=== PATIENT | female | born 1985 | race Caucasian/White ===

== ENCOUNTER 2018-01-12 08:49 | Outpatient (RCR) | payer BC ==
[2017-03-26 14:32] VITALS: BMI 22.1
[2017-10-20 15:20] VITALS: BP 138/96
[2017-10-20 15:33] VITALS: BP 135/96
[2017-11-21 14:30] VITALS: BP 135/96
[2017-12-16 08:45] VITALS: BP 133/98
[~2018-01-12 08:49] MED LIST: ACET-1966 PO; ALB18R INH; ALB6.7R INH; ALBU8.5H12 IH; ALBUDR INH; AZIT-18 PO; AZIT500T44 PO; BUDE0.5A INH; BUDE10.2 IH; CEP500 PO; CET10 PO; CETI-176 PO; CHOL10005 PO; CHOL200022 PO; CIP500 PO; CIPR-326 PO; DEXTROSE 5%(*) 100 ML BAG 100 ML IVPB PRN; DIA5 PO; DIC10 PO; DILT360C24 PO; ESC10 PO; FLUT16SP20 NS; FOL1 PO; GABA-1 PO; GABA-549 PO; HYDR-3140 PO; HYDR-3503 PO; HYDR-389 PO; HYDR2TAB41 PO; HYDR2TAB42 PO; IPRA3AMP37 NEB; IPRUDR INH; KET10 PO; LEVA1.2527 IH; LEVA15HF IH; LEVO750T25 PO; LEVO88TA43 PO; LIDOCAINE/SOD BICARB 8.4% SYR ID PRN; LOOVRAL PO; LOR5 PO; METR-1 PO; MIDO5TAB20 PO; MIRT-1 PO; MON10 PO; Mirtazapine PO; NAPR220C12 PO; NOR5/325 PO; NORE1TAB PO; NS(*) 0.9% 100 ML BAG 100 ML IVPB PRN; OMALIZUMAB 150 MG SVD SQ ONE; OND4 PO; ONDA4TAB PO; ONDA4TAB97 PO; OXYC-866 PO; OXYC1TAB54 FT; OXYC1TAB54 PO; PAN40 PO; PER PO; POTT20 PO; PRE10 PO; PRED20TA6 PO; PRO25 FT; PRO25 PO; PROM-110 PO; PROM12.556 PO; PROM25S PR; PROM25SU61 RC; PROM25SU9 RC; RANI-324 PO; RANI150C17 PO; RAPAFLOW; RIZA10TA3 PO; SILO8CAP PO; TAM4 PO; TAMS0.4C25 PO; TIO18R IH; TIO18R INH; TRA50 PO; VANC125C2 PO; VEN75 PO; ZILE600T5 PO; [UNRECOGNIZED DRUG - CODE] PO; [UNRECOGNIZED DRUG - CODE] PO; [UNRECOGNIZED DRUG - OTHER] SQ; diphenhydrAMINE 25 MG CAP PO PRN
[2018-01-12] MEDS ORDERED: OMALIZUMAB 150 MG SVD SQ ONE (09:00)
[2018-01-12 09:39] VITALS: BP 123/92
== END 2018-01-13 ==
LOC: SPU 08:49
PROVIDERS: ATTEND Family Medicine
DX: J45.50 Severe persistent asthma, uncomplicated (principal)
CPT/HCPCS: 96372; J2357

== ENCOUNTER → 2018-03-13 | Outpatient (CLI) | payer BC ==
[2017-03-26 14:32] VITALS: BMI 22.1
[~2018-03-13] MED LIST changes: -DEXTROSE 5%(*) 100 ML BAG 100 ML IVPB PRN; -LIDOCAINE/SOD BICARB 8.4% SYR ID PRN; -NS(*) 0.9% 100 ML BAG 100 ML IVPB PRN; -OMALIZUMAB 150 MG SVD SQ ONE; -RANI-324 PO; +RANI-366 PO; -diphenhydrAMINE 25 MG CAP PO PRN
--- NOTE | 2018-03-13 14:15 | RADIOLOGY IMAGING REPORT ---
FACILITY: [facility] PATIENT NAME: Tanya Maurer : 1985 MR: [id number] V: [id number] EXAM DATE: ORDERING PHYSICIAN: SHIVANI NESS TECHNOLOGIST: Location: [facility] Patient: Tanya Maurer : 1985 Visit/Account:[id number] Date of Sevice: 03/13/[address] scan without contrast HISTORY: Dizziness, syncope COMPARISONS: None TECHNIQUE: Non-contrast head CT was performed with sagittal and coronal reformations. One of the following dose optimization techniques was utilized in the performance of this exam: autom ated exposure control; adjustment of the mA and/or kV according to patient size; or use of iterative reconstruction technique. Specific details can be referenced in the facility's radiology CT exam ope rational policy. FINDINGS: There is no intracranial hemorrhage, hydrocephalus or midline shift. The basal cisterns, herrera-white differentiation, and convexity sulci are maintained. Normal orbital soft tissues. Clear mastoid air cells. Clear paranasal sinuses. Postsurgical change noted in the paranasal sinuse s. No acute osseous abnormality. IMPRESSION: No acute intracranial abnormality. Normal head CT. Report Dictated By: Pino Brewster MD at 03/13/2018 2:08 PM Report E-Signed By: Pino Brewster MD at 03/13/2018 2:11 PM [id number]
== END ==
LOC: CT 12:54
PROVIDERS: ATTEND Family Medicine
DX: R42 Dizziness and giddiness (principal); R55 Syncope and collapse
CPT/HCPCS: 70450

== ENCOUNTER 2018-03-25 19:34 | Observation (INO) | payer BC ==
[~2018-03-25] VITALS: Ht 157.5 cm; Wt 55.4 kg
--- NOTE | 2018-03-25 19:37 | ER Report ---
History and Physical Time Seen By MD: 19:36 HPI/ROS CHIEF COMPLAINT: Asthma attack HISTORY OF PRESENT ILLNESS: 32-year-old female patient presents to emergency room with complaint of asthma attack. Patient is well-known to the emergency room as we have seen her multiple times for asthma attacks. Patient does have a history of being admitted several times and having been intubated and placed in ICU several times for her asthma exacerbations. Patient states that this been going on for 2 hours. Patient is unable to give any other history of present illness due to difficulty breathing. By the time that I arrived in the room the patient is only able to nod or shake her head in response to yes no questions. REVIEW OF SYSTEMS: Unable to ascertain review of systems due to difficulty with speech. Allergies: Coded Allergies: shellfish derived (Verified Allergy, Severe, anaphylaxis, 03/25/18) ipratropium (Verified Allergy, Unknown, 03/25/18) latex (Verified Allergy, Unknown, 03/25/18) Uncoded Allergies: PEANUTS (Allergy, Intermediate, HIVES, 06/06/17) DAIRY (Allergy, Unknown, VOMITING, 05/03/14) beta luann (Adverse Reaction, Severe, SVT, 01/18/15) Home Meds Reported Medications Prednisone (PREDNISONE) 20 Mg Tablet, 60 MG PO QDAY, TAB 07/29/17 Gabapentin (GABAPENTIN) 300 Mg Capsule, 600 MG PO BID Y for PAIN, CAPSULE 06/06/17 Ranitidine Hcl (ZANTAC) 150 Mg Tablet, 150 MG PO BID, TAB 06/06/17 [xolar] No Conflict Check, 150 MG SQ Q4WK 03/25/17 Albuterol Sulfate (VENTOLIN HFA) 18 Gm Inh, 1-2 PUFF INH 3-4XD, INH 03/25/17 Levothyroxine Sodium (SYNTHROID) 88 Mcg Tablet, 88 MCG PO QDAY 03/05/17 Rizatriptan Benzoate (RIZATRIPTAN) 10 Mg Tab.rapdis, 10 MG PO PRN Y for headache 08/22/16 Tiotropium [place] (SPIRIVA) 18 Mcg/Cap Inh, 18 MCG INH DAILY, INH 08/21/16 Cetirizine Hcl (ZYRTEC) 10 Mg Tablet, 10 MG PO QDAY, TAB 02/20/16 Budesonide/Formoterol Fumarate (Symbicort 160/4.5 Mcg Inhaler) 10.2 Gm Hfa.aer.ad, 10.2 GM IH BID, 0 Refills 05/17/11 Fluticasone Propionate (Flonase) 16 Gm [place], 2 [place]OL[place] NS BID, 0 Refills 05/17/11 Montelukast Sodium (Singulair) 10 Mg Tab, 10 MG PO QHS, 0 Refills 05/17/11 Past Medical/Surgical History Patient has a past medical history of migraines, SVT, asthma attacks, pneumonia , reflux, cholecystitis, kidney stones, endometriosis, torn ligaments in left wrist, left wrist fracture, ruptured left eardrum, hypothyroidism, alcohol use, C. difficile, anxiety. Patient has surgical history of laparoscopic surgery, appendectomy, cholecystectomy, left wrist surgery, right shoulder surgery, tonsillectomy. Reviewed Nurses Notes: Yes Hx Smoking: No Smoking Status: Never Smoker Exposure to Second Hand Smoke?: No Hx Substance Use Disorder: No Hx Alcohol Use: Yes Constitutional Vital Sign - Last 24 Hours 03/25/18 03/25/18 03/25/18 03/25/18 19:40 19:40 19:40 19:45 Temp 99.1 Pulse 115 129 117 Resp 36 65 38 B/P (MAP) 140/105 Pulse Ox 95 98 100 O2 Delivery Room Air Room Air 03/25/18 03/25/18 03/25/18 03/25/18 19:45 20:00 20:06 20:15 Pulse 120 118 130 Resp 42 48 47 B/P (MAP) 128/64 (85) 127/75 (92) Pulse Ox 100 99 97 O2 Delivery Non-Rebreather O2 Flow Rate 15.0 15 03/25/18 03/25/18 03/25/18 03/25/18 20:30 20:45 20:46 20:46 Pulse 126 146 130 Resp 39 20 36 B/P (MAP) 113/63 (80) 93/56 (68) Pulse Ox 97 99 98 O2 Delivery Room Air 03/25/18 03/25/18 03/25/18 03/25/18 20:48 21:00 21:00 21:20 Pulse 147 153 Resp 33 33 Pulse Ox 98 O2 Delivery Room Air O2 Flow Rate 2.0 Physical Exam General Appearance: The patient is alert, has no immediate need for airway protection and no signs of toxicity. Patient is tachypneic, Eyes: Pupils equal and round no pallor or injection. Respiratory: There are no retractions, lungs are extremely diminished with only slight air movement to auscultation. Cardiovascular: Regular rhythm. Patient is tachypneic with a ventricular rate of 129. Gastrointestinal: Abdomen is soft and non tender, no masses, bowel sounds normal. Skin: Warm and dry, no rashes. Musculoskeletal: Neck is supple non tender. Extremities are nontender, nonswollen and have full range of motion. DIFFERENTIAL DIAGNOSIS: After history and physical exam differential diagnosis was considered for shortness of breath including but not limited to pulmonary infectious process, COPD, asthma, pulmonary embolus and congestive heart failure. Medical Decision Making Data Points Result Diagram: 03/25/18200703/25/182007 Laboratory Hematology Test 03/25/18 20:08 Red Blood Count 4.75 M/uL (4.17-5.56) Mean Corpuscular Volume 95.5 fL (80.0-96.0) Mean Corpuscular Hemoglobin 32.5 pg (26.0-33.0) Mean Corpuscular Hemoglobin Concent 34.0 g/dL (32.0-36.0) Red Cell Distribution Width 13.7 % (11.5-14.5) Mean Platelet Volume 8.7 fL (7.2-11.1) Neutrophils (%) (Auto) 67.0 % (39.4-72.5) Lymphocytes (%) (Auto) 25.4 % (17.6-49.6) Monocytes (%) (Auto) 6.7 % (4.1-12.4) Eosinophils (%) (Auto) 0.3 % (0.4-6.7) Basophils (%) (Auto) 0.6 % (0.3-1.4) Nucleated RBC Relative Count (auto) 0.0 /100WBC Neutrophils # (Auto) 6.8 K/uL (2.0-7.4) Lymphocytes # (Auto) 2.6 K/uL (1.3-3.6) Monocytes # (Auto) 0.7 K/uL (0.3-1.0) Eosinophils # (Auto) 0.0 K/uL (0.0-0.5) Basophils # (Auto) 0.1 K/uL (0.0-0.1) Nucleated RBC Absolute Count (auto) 0.00 K/uL Sodium Level 144 mmol/L (137-145) Potassium Level 3.7 mmol/L (3.5-5.0) Chloride Level 108 mmol/L (98-107) Carbon Dioxide Level 17 mmol/L (22-31) Blood Urea Nitrogen 9 mg/dl (7-18) Creatinine 0.70 mg/dl (0.52-1.04) Glomerular Filtration Rate Calc > 60.0 Random Glucose 103 mg/dl (75-110) Calcium Level 9.7 mg/dl (8.4-10.2) Total Bilirubin 0.7 mg/dl (0.2-1.3) Aspartate Amino Transf (AST/SGOT) 28 U/L (0-35) Alanine Aminotransferase (ALT/SGPT) 22 U/L (0-56) Alkaline Phosphatase 70 U/L (0-126) Total Protein 7.6 gm/dl (6.3-8.2) Albumin 4.5 g/dl (3.5-5.0) Chemistry Test 03/25/18 20:08 White Blood Count 10.2 k/uL (4.5-11.0) Red Blood Count 4.75 M/uL (4.17-5.56) Hemoglobin 15.4 g/dL (12.0-16.0) Hematocrit 45.3 % (34.0-47.0) Mean Corpuscular Volume 95.5 fL (80.0-96.0) Mean Corpuscular Hemoglobin 32.5 pg (26.0-33.0) Mean Corpuscular Hemoglobin Concent 34.0 g/dL (32.0-36.0) Red Cell Distribution Width 13.7 % (11.5-14.5) Platelet Count 180 K/uL (150-450) Mean Platelet Volume 8.7 fL (7.2-11.1) Neutrophils (%) (Auto) 67.0 % (39.4-72.5) Lymphocytes (%) (Auto) 25.4 % (17.6-49.6) Monocytes (%) (Auto) 6.7 % (4.1-12.4) Eosinophils (%) (Auto) 0.3 % (0.4-6.7) Basophils (%) (Auto) 0.6 % (0.3-1.4) Nucleated RBC Relative Count (auto) 0.0 /100WBC Neutrophils # (Auto) 6.8 K/uL (2.0-7.4) Lymphocytes # (Auto) 2.6 K/uL (1.3-3.6) Monocytes # (Auto) 0.7 K/uL (0.3-1.0) Eosinophils # (Auto) 0.0 K/uL (0.0-0.5) Basophils # (Auto) 0.1 K/uL (0.0-0.1) Nucleated RBC Absolute Count (auto) 0.00 K/uL Glomerular Filtration Rate Calc > 60.0 Calcium Level 9.7 mg/dl (8.4-10.2) Total Bilirubin 0.7 mg/dl (0.2-1.3) Aspartate Amino Transf (AST/SGOT) 28 U/L (0-35) Alanine Aminotransferase (ALT/SGPT) 22 U/L (0-56) Alkaline Phosphatase 70 U/L (0-126) Total Protein 7.6 gm/dl (6.3-8.2) Albumin 4.5 g/dl (3.5-5.0) EKG/Imaging Imaging PORTABLE CHEST: Indication: Dyspnea. Technique: A single frontal film was obtained. Respiratory therapy equipment is projected over the left apex. Comparison: 07/29/2017 Skeletal and soft tissue structures: Intact and unremarkable. Heart and mediastinum: Within normal limits. Lung morel: Well-expanded and clear. No focal opacity or consolidation. Pleural spaces: Unremarkable. Impression: No acute process or significant change. Report Dictated By: Bebo Jeffery MD at 03/25/2018 8:10 PM Report E-Signed By: Bebo Jeffery MD at 03/25/2018 8:12 PM ED Course/Re-evaluation ED Course Patient was admitted to an exam room, history and physical were obtained. Differential diagnoses were considered. On examination patient had extremely tight breath sounds, is able to hear faint wheezing in the left upper lobe. A hour-long nebulizer treatment was ordered. During that time breath sounds did improve, patient also received a dose of Solu-Medrol, 2 g of magnesium. On reevaluation patient is doing better, however she was tachypneic. Patient was given a dose of racemic epi. Patient had some improvement. Patient did request additional dose of up-year-old. That was given. After that the patient was still tachypneic, having some shortness of breath. I feel that the patient needs to be admitted. I discussed the case with Dr. Sotelo, [facility]. He did agree to accept the patient for admission with diagnosis of asthma exacerbation. I discussed starting the patient on BiPAP. Dr. Sotelo stated that he would prefer that we did not do that as patient needs to exhale, and exhaling against pressure would make things worse. I discussed this with patient. 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 She states that she did not feel comfortable going to wait on tomorrow which is where she would need to be stating that she was going to be driving and they're spots. With her not going to clinicals tomorrow I stated that she would better off staying overnight. Patient verbalized understanding and agreement with plan. Decision to Disposition Date: March 25, 2018 Decision to Disposition Time: 21:11 Depart Departure Latest Vital Signs Vital Signs Date Time Temp Pulse Resp B/P (MAP) Pulse Ox O2 Delivery O2 Flow Rate FiO2 03/25/18 21:20 2.0 03/25/18 21:00 98 Room Air 03/25/18 21:00 153 33 03/25/18 20:45 93/56 (68) 03/25/18 19:40 99.1 Impression: Primary Impression: Asthma exacerbation Condition: Condition Unchanged Disposition: Admitted from ER Referrals: SHIVANI NESS DO (PCP) Problem Qualifiers Primary Impression: Asthma exacerbation Asthma severity: moderate Asthma persistence: persistent Qualified Codes: J45.41 - Moderate persistent asthma with (acute) exacerbation SOFIA ADAME DIRECTOR OF [employer] March 25, 2018 19:37
[2018-03-25] MEDS ORDERED: ALBUTEROL 2.5 MG/3 ML NEB ONE ×2 (19:40→20:54)
[2018-03-25] MEDS ORDERED: ALBUTEROL 2.5 MG/0.5ML ER ONLY NEB ONE (19:45)
[2018-03-25] MEDS ORDERED: MAGNESIUM SUL* 2 GM/50 ML IVPB 50 ML IVPB ONE (19:45)
[2018-03-25] MEDS ORDERED: methylPREDNIS SUCC 125 MG/2ML IVP ONE (19:45)
[2018-03-25] MEDS ORDERED: LORazepam 2 MG/ML VIAL IVP ONE (19:50)
[2018-03-25 20:13] LABS: PLATELET COUNT, AUTOMATED 180 K/uL (150-450)
--- NOTE | 2018-03-25 20:16 | RADIOLOGY IMAGING REPORT ---
FACILITY: [facility] PATIENT NAME: Tanya Maurer : 1985 MR: [id number] V: [id number] EXAM DATE: ORDERING PHYSICIAN: SOFIA ADAME TECHNOLOGIST: Location: [facility] Patient: Tanya Maurer : 1985 Visit/Account:[id number] Date of Sevice: 03/25/2018 PORTABLE CHEST: Indication: Dyspnea. Technique: A single frontal film was obtained. Respiratory therapy equipment is projected over the le ft apex. Comparison: 07/29/2017 Skeletal and soft tissue structures: Intact and unremarkable. Heart and mediastinum: Within normal limits. Lung morel: Well-expanded and clear. No focal opacity or consolidation. Pleural spaces: Unremarkable. Impression: No acute process or significant change. Report Dictated By: Bebo Jeffery MD at 03/25/2018 8:10 PM Report E-Signed By: Bebo Jeffery MD at 03/25/2018 8:12 PM WSN:[id number]
[2018-03-25] MEDS ORDERED: EPINEPHrine 2.25% 0.5 ML NEB NEB ONE (20:40)
[2018-03-25] MEDS ORDERED: NS 0.9% NEB 3 ML SOLN INH ONE (20:40)
[2018-03-25] MEDS ORDERED: ALBUTEROL 2.5 MG/3 ML NEB NEB ONE (20:55)
[2018-03-25 21:44] VITALS: BP 111/77
[2018-03-25] MEDS ORDERED: CHOL10005 PO (22:17)
[2018-03-25] MEDS ORDERED: CYAN500T7 (22:17)
[2018-03-25] MEDS ORDERED: GABAPENTIN 300 MG CAP PO PRN (22:40)
[2018-03-25] MEDS ORDERED: INFLUENZA VIRUS VAC 0.5 ML SYR IM ONLY ONE (22:40)
--- NOTE | 2018-03-25 22:49 | History & Physical ---
History of Present Illness Chief Complaint Shortness of breath History of Present Illness This patient presented to the emergency room complaining of shortness of breath and wheezing. She has a long history of asthma with frequent exacerbations. However, has been doing much better over the last year. History Problems: (1) Status post wrist surgery Status: Resolved (2) History of sinus surgery Status: Resolved (3) Depression with suicidal ideation Status: Chronic (4) Asthma Status: Chronic Home Meds Reported Medications Cyanocobalamin (Vitamin B-12) (Vitamin B-12) 500 Mcg Tab.subl, QDAY 03/25/18 Cholecalciferol (Vitamin D3) (VITAMIN D3) 1,000 Unit Tablet, 2000 UNIT PO QDAY, TAB 03/25/18 Gabapentin (GABAPENTIN) 300 Mg Capsule, 600 MG PO BID Y for PAIN, CAPSULE 06/06/17 [xolar] No Conflict Check, 150 MG SQ Q4WK 03/25/17 Albuterol Sulfate (VENTOLIN HFA) 18 Gm Inh, 1-2 PUFF INH 3-4XD, INH 03/25/17 Levothyroxine Sodium (SYNTHROID) 88 Mcg Tablet, 88 MCG PO QDAY 03/05/17 Rizatriptan Benzoate (RIZATRIPTAN) 10 Mg Tab.rapdis, 10 MG PO PRN Y for headache 08/22/16 Tiotropium [place] (SPIRIVA) 18 Mcg/Cap Inh, 18 MCG INH DAILY, INH 08/21/16 Cetirizine Hcl (ZYRTEC) 10 Mg Tablet, 10 MG PO QDAY, TAB 02/20/16 Budesonide/Formoterol Fumarate (Symbicort 160/4.5 Mcg Inhaler) 10.2 Gm Hfa.aer.ad, 10.2 GM IH BID, 0 Refills 05/17/11 Fluticasone Propionate (Flonase) 16 Gm [place], 2 [place] NS BID, 0 Refills 05/17/11 Montelukast Sodium (Singulair) 10 Mg Tab, 10 MG PO QHS, 0 Refills 05/17/11 Discontinued Reported Medications Prednisone (PREDNISONE) 20 Mg Tablet, 60 MG PO QDAY, TAB 07/29/17 Ranitidine Hcl (ZANTAC) 150 Mg Tablet, 150 MG PO BID, TAB 06/06/17 Allergies: Coded Allergies: shellfish derived (Verified Allergy, Severe, anaphylaxis, 03/25/18) ipratropium (Verified Allergy, Unknown, 03/25/18) latex (Verified Allergy, Unknown, 03/25/18) Uncoded Allergies: PEANUTS (Allergy, Intermediate, HIVES, 06/06/17) DAIRY (Allergy, Unknown, VOMITING, 05/03/14) beta luann (Adverse Reaction, Severe, SVT, 01/18/15) Patient History: FH: bipolar disorder BROTHER OR SISTER, Age:27 FH: cholecystectomy FH: hypercholesterolemia FATHER FHx: osteoporosis Hx Smoking: No Smoking Status: Never Smoker Exposure to Second Hand Smoke?: No Caffeine Intake: Coffee, Soda Caffeine/Cups Per Day: 1-2 of each a day Hx Alcohol Use: Yes Hx Substance Use Disorder: No Social Drug Use: Never Review of Systems All Systems Reviewed/Normal: Yes, Except as Noted Respiratory: Shortness of Breath, Wheezing Exam Vital Signs Vital Signs Date Time Temp Pulse Resp B/P (MAP) Pulse Ox O2 Delivery O2 Flow Rate FiO2 03/25/18 21:44 98.0 142 32 111/77 (88) 98 Nasal Cannula 2.0 Neuro: No Gross deficits Eyes: PERRLA Cardiovascular: Regular Rate and Rhythm Respiratory: Other (Diminished breath sounds bilateral.) GI: Abd Soft and Non-Tender Extremities: No Edema Integumentary: No Cyanosis Medical Decision Making Data Points Result Diagram: 03/25/18200703/25/182007 EKG / Imaging Imaging Chest x-ray reviewed. Assessment and Plan Problems: (1) Asthma exacerbation Status: Acute Assessment & Plan: She received an hour long nebulizer, racemic epinephrine, and steroids in the emergency department. However, she continues to have diminished breath sounds bilateral. Her x-ray was negative for infiltrates. We will continue nebulizer treatments and steroids through the night. Venous Thromboembolism Antithrombotics Is Pt On Any Antithrombotics?: No Exam Sepsis Risk: No Definite Risk ABRAM GTZ DO March 25, 2018 22:49
[2018-03-25] MEDS: ALBUTEROL 2.5 MG/3 ML NEB NEB PRN (23:00)
[2018-03-26] MEDS: ALBUTEROL 2.5 MG/3 ML NEB NEB PRN ×3 (00:29→07:30)
[2018-03-26] MEDS ORDERED: methylPREDNIS SUCC 125 MG/2ML IVP SCH (04:00)
[2018-03-26 04:01] VITALS: BP 99/67
[2018-03-26] MEDS ORDERED: ALBUTEROL 2.5 MG/3 ML NEB NEB SCH (06:00)
[2018-03-26 07:10] VITALS: BP 104/60
[2018-03-26] MEDS ORDERED: LEVALBUTEROL 1.25 MG/3 ML NEB NEB PRN (07:40)
--- NOTE | 2018-03-26 08:59 | Hospitalist Progress Note ---
Subjective Progress Notes Subjective She reports feeling improved, but HR elevated with the albuterol treatments. Physical Exam Vital Signs Date Time Temp Pulse Resp B/P (MAP) Pulse Ox O2 Delivery O2 Flow Rate FiO2 03/26/18 07:47 93 03/26/18 07:35 126 20 03/26/18 07:29 Nasal Cannula 2.0 03/26/18 07:10 98.3 104/60 (75) General Appearance: Alert, Awake Cardiovascular: Other (Regular slightly tachycardic) Respiratory: Other (diminished breath sounds bilaterally, but equal and no rales or wheezes noted) GI: Soft and Non-Tender Extremities: Warm, Perfused Result Diagram: 03/25/18200703/25/182007 Assessment and Plan Problems: (1) Asthma exacerbation Status: Acute Assessment & Plan: Clinically improved. Her chest x-ray was negative for infiltrates. We will continue nebulizer treatments, but switch to Xopenex to hopefully reduce the tachycardia. Will continue steroids at reduced dose. Start to mobilize. Watch closely. Exam Sepsis Risk: No Definite Risk BRYON BOO MD March 26, 2018 08:59
[2018-03-26] MEDS ORDERED: BUDESO/FORMOT 160/4.5 MCG 6 GM INH SCH (09:00)
[2018-03-26] MEDS ORDERED: TIOTROPIUM BROM INH 18 MCG/CAP INH SCH (09:00)
[2018-03-26] MEDS ORDERED: LEVOTHYROXINE SOD 0.088 MG TAB PO SCH (09:00)
[2018-03-26] MEDS: FLUTICASONE PROP 0.05% 16 GM SCH ×2 (09:19→21:12)
[2018-03-26] MEDS: CETIRIZINE HCL 10 MG TAB PO SCH (09:19)
[2018-03-26] MEDS: LEVALBUTEROL 1.25 MG/3 ML NEB NEB PRN ×3 (10:19→21:19)
[2018-03-26 11:18] VITALS: BP 108/58
[2018-03-26] MEDS ORDERED: ACETAMINOPHEN 325 MG TAB PO PRN (11:25)
[2018-03-26] MEDS: IBUPROFEN 600 MG TAB PO PRN ×2 (11:44→19:05)
[2018-03-26 14:10] VITALS: Ht 157.5 cm; Wt 55.4 kg
[2018-03-26 14:56] VITALS: BP 108/52
[2018-03-26] MEDS: methylPREDNIS SUCC 125 MG/2ML IVP SCH (15:50)
[2018-03-26] MEDS: BUDESO/FORMOT 160/4.5 MCG 6 GM INH SCH (17:06)
[2018-03-26 19:02] VITALS: BP 131/70
[2018-03-26] MEDS ORDERED: MONTELUKAST SODIUM 10 MG TAB PO SCH (21:00)
[2018-03-27 00:11] VITALS: BP 99/50
[2018-03-27] MEDS: methylPREDNIS SUCC 125 MG/2ML IVP SCH (04:23)
[2018-03-27 04:31] VITALS: BP 123/67
[2018-03-27] MEDS: LEVALBUTEROL 1.25 MG/3 ML NEB NEB PRN (05:30)
[2018-03-27] MEDS: BUDESO/FORMOT 160/4.5 MCG 6 GM INH SCH (05:31)
[2018-03-27] MEDS ORDERED: LEVOTHYROXINE SOD 0.088 MG TAB PO SCH (06:00)
[2018-03-27] MEDS ORDERED: TIOTROPIUM BROM INH 18 MCG/CAP INH SCH (06:00)
[2018-03-27 08:29] VITALS: BP 117/74
[2018-03-27] MEDS: CETIRIZINE HCL 10 MG TAB PO SCH (08:30)
[2018-03-27] MEDS: FLUTICASONE PROP 0.05% 16 GM SCH (08:30)
[2018-03-27] MEDS ORDERED: OMAL150V2 SQ (09:16)
[2018-03-27] MEDS ORDERED: PRED20TA6 PO (09:41)
[2018-03-27] MEDS ORDERED: LEVA1.2513 NEB (09:41)
[2018-03-27] MEDS ORDERED: LEVA15HF IH (09:41)
--- NOTE | 2018-03-27 09:46 | Hospitalist Depart ---
Discharge Summary Reason for Hosp/Final Diag: (1) Asthma exacerbation Status: Acute Hospital Course & Plan: The patient presented with exacerbation of asthma. Her chest x-ray was negative for infiltrates. She was started on IV steroids and nebulizer treatments. She was initially tachycardic on albuterol nebulizer treatments. She was switched to Xopenex. She improved clinically and her steroids were weaned. On 03/27/18 she was much improved and ready for discharge. She was discharged on a steroid taper. Xopenex MDI and nebs were prescribed as well. Departure Weight (Pounds): 122 Weight (Ounces): 2.0 Result Diagram: 03/25/18200703/25/182007 Condition: Improved Discharge: Home, Self Care Time Spent: < 30 min Discharge Instructions Home Meds Active Scripts Prednisone (PREDNISONE) 20 Mg Tablet, 60 MG PO DIRECTED, #21 TAB 60mg po qd X 2d, 50mg qd X 2d, 40mg qd X 2d, 30mg po qd X 2d, 20mg X 2d, 10mg qd X 2d then stop. Prov:STACIA BOO MD 03/27/18 Levalbuterol Tartrate (XOPENEX HFA) 15 Gm Hfa.aer.ad, 2 PUFF IH QID, #1 INHALER 2 Refills Prov:STACIA BOO MD 03/27/18 Levalbuterol Hcl (LEVALBUTEROL HCL) 1.25 Mg/3 Ml Vial.neb, 1.25 MG NEB Q2HR Y for SHORTNESS OF BREATH, #30 VIAL 2 Refills Prov:STACIA BOO MD 03/27/18 Reported Medications Omalizumab (XOLAIR) 150 Mg Vial, 150 MG SQ Q4WK, VIAL 03/27/18 Cyanocobalamin (Vitamin B-12) (Vitamin B-12) 500 Mcg Tab.subl, QDAY 03/25/18 Cholecalciferol (Vitamin D3) (VITAMIN D3) 1,000 Unit Tablet, 2000 UNIT PO QDAY, TAB 03/25/18 Gabapentin (GABAPENTIN) 300 Mg Capsule, 600 MG PO BID Y for PAIN, CAPSULE 06/06/17 Albuterol Sulfate (VENTOLIN HFA) 18 Gm Inh, 1-2 PUFF INH 3-4XD, INH 03/25/17 Levothyroxine Sodium (SYNTHROID) 88 Mcg Tablet, 88 MCG PO QDAY 03/05/17 Rizatriptan Benzoate (RIZATRIPTAN) 10 Mg Tab.rapdis, 10 MG PO PRN Y for headache 08/22/16 Tiotropium [place] (SPIRIVA) 18 Mcg/Cap Inh, 18 MCG INH DAILY, INH 08/21/16 Cetirizine Hcl (ZYRTEC) 10 Mg Tablet, 10 MG PO QDAY, TAB 02/20/16 Budesonide/Formoterol Fumarate (Symbicort 160/4.5 Mcg Inhaler) 10.2 Gm Hfa.aer.ad, 10.2 GM IH BID, 0 Refills 05/17/11 Fluticasone Propionate (Flonase) 16 Gm [place], 2 [place] NS BID, 0 Refills 05/17/11 Montelukast Sodium (Singulair) 10 Mg Tab, 10 MG PO QHS, 0 Refills 05/17/11 Discontinued Reported Medications [xolar] No Conflict Check, 150 MG SQ Q4WK 03/25/17 Prednisone (PREDNISONE) 20 Mg Tablet, 60 MG PO QDAY, TAB 07/29/17 Ranitidine Hcl (ZANTAC) 150 Mg Tablet, 150 MG PO BID, TAB 06/06/17 Follow up Referrals: Family Practice - In Two Weeks with Arcelia Balderas Do Diet: Regular Activity: As Tolerated Special Instructions: The patient may resume her usual activities on March 31, 2018. Copies to: ARCELIA BALDERAS DO Venous Thromboembolism Antithrombotics Is Pt On Any Antithrombotics?: No STACIA BOO MD March 27, 2018 09:46
== END 2018-03-27 09:42 | disposition home or self-care (01) ==
LOC: ER 19:48 → INTOOBSV 21:22 → MED 21:22
PROVIDERS: ADMIT Family Medicine; ATTEND Family Medicine
DX: J45.41 Moderate persistent asthma with (acute) exacerbation (principal)
CPT/HCPCS: 36415; 71045; 85025; 94640; 94644; 99285; A4218; G0378; J2060; J2930; J3475; J3535; J7611; J7613; J7699; 82040; 82247; 82310; 82374; 82435; 82565; 82947; 84075; 84132; 84155; 84295; 84450; 84460; 84520

== ENCOUNTER 2018-04-24 09:37 | Outpatient (RCR) | payer BC ==
[2018-02-12 14:13] VITALS: BP 117/81
[2018-03-03 08:29] VITALS: BP 132/96
[2018-03-26 14:10] VITALS: BMI 22.3
[~2018-04-24 09:37] MED LIST changes: +CYAN500T7; +LEVA1.2513 NEB; +OMAL150V2 SQ; +OMALIZUMAB 150 MG SVD SQ ONE
[2018-04-24] MEDS ORDERED: OMALIZUMAB 150 MG SVD SQ ONE (10:00)
[2018-04-24 10:37] VITALS: BP 125/83
== END 2018-05-12 ==
LOC: SPU 09:37
PROVIDERS: ATTEND Family Medicine
DX: J45.50 Severe persistent asthma, uncomplicated (principal)
CPT/HCPCS: 96372; J2357

== ENCOUNTER 2018-05-18 10:44 | Outpatient (RCR) | payer BC ==
[2018-03-26 14:10] VITALS: BMI 22.3
[~2018-05-18 10:44] MED LIST changes: -OMALIZUMAB 150 MG SVD SQ ONE
[2018-05-18] MEDS ORDERED: OMALIZUMAB 150 MG SVD SQ ONE (11:00)
[2018-05-18 16:31] VITALS: BP 110/70
== END 2018-05-19 08:24 | disposition home or self-care (01) ==
LOC: SPU 10:44
PROVIDERS: ATTEND Family Medicine
DX: J45.50 Severe persistent asthma, uncomplicated (principal)
CPT/HCPCS: 96372; J2357